=== PATIENT | male | born 1990 | race Caucasian/White ===

== ENCOUNTER 2017-04-20 02:19 | Emergency (ER) | payer OTHER ==
--- NOTE | 2017-04-20 03:40 | ER Document Report ---
HPI - HPI Patient complains to provider of: right arm pain Pain Level: 4 Context: Patient is a 26-year-old male that comes emergency department for chief complaint of right arm pain. He states that a large door accidentally closed on his arm just below his elbow, this happened over a week ago, he states that the pain persisted and will not go away and he is afraid he might have broken something after all. He denies any other injuries. He also reports a bump on the end of his wrist that he wants checked. Past medical history of ADHD, denies any other medical history. Denies any daily medications. - CONSTITUTIONAL Constitutional: DENIES: Fever, Chills - EENT EENT: DENIES: Sore Throat, Ear Pain, Eye problems - NEURO Neurology: DENIES: Headache, Weakness, Vision blurred, Dizzinesss / Vertigo - CARDIOVASCULAR Cardiovascular: DENIES: Chest pain - RESPIRATORY Respiratory: DENIES: Trouble Breathing, Coughing - GASTROINTESTINAL Gastrointestinal: DENIES: Abdominal Pain, Black / Bloody Stools - URINARY Urinary: DENIES: Dysuria, Urgency, Frequency - REPRODUCTIVE Reproductive: DENIES: :, Postmenopausal, Abnormal bleeding / discharge - MUSCULOSKELETAL Musculoskeletal: REPORTS: Extremity pain - r arm Past Medical History - General Information source: Patient - Social History Smoking Status: Current Every Day Smoker Chew tobacco use (# tins/day): No Smoking Education Provided: Yes - <3 min Frequency of alcohol use: None Drug Abuse: None Lives with: Alone Family History: Reviewed & Not Pertinent Patient has suicidal ideation: No Patient has homicidal ideation: No - Past Medical History Cardiac Medical History: Denies: Hx Coronary Artery Disease, Hx Heart Attack, Hx Hypertension Pulmonary Medical History: Reports: Hx Asthma - peds Denies: Hx Bronchitis, Hx COPD, Hx Pneumonia Neurological Medical History: Denies: Hx Cerebrovascular Accident, Hx Seizures Renal/ Medical History: Denies: Hx Peritoneal Dialysis Musculoskeltal Medical History: Denies Hx Arthritis Psychiatric Medical History: Reports: Hx Attention Deficit Hyperactivity Disorder Traumatic Medical History: Reports: Hx Fractures - right hand Past Surgical History: Reports: Hx Tonsillectomy - Immunizations Hx Diphtheria, Pertussis, Tetanus Vaccination: Yes Vertical Provider Document - CONSTITUTIONAL General Appearance: WD/WN, No Apparent Distress - INFECTION CONTROL TRAVEL OUTSIDE OF THE [place] IN LAST 30 DAYS: No - HEENT HEENT: Atraumatic, Normocephalic - RESPIRATORY Respiratory: Breath Sounds Normal, No Respiratory Distress O2 Sat by Pulse Oximetry: 99 - CARDIOVASCULAR Cardiovascular: Regular Rate, Regular Rhythm - GI/ABDOMEN Gastrointestinal: Abdomen Soft, Abdomen Non-Tender - MUSCULOSKELETAL/EXTREMETIES Musculoskeletal/Extremeties: Tender - There is tenderness generally over the lateral right arm near the elbow and in the proximal forearm. Mild pain with extension and flexion of the elbow. Shoulder exam unremarkable, wrist exam unremarkable except for a rounded area near the base of the hand. No erythema, unremarkable wrist exam otherwise, normal hand exam otherwise, normal capillary refill and sensation. Course - Re-evaluation Re-evalutation: Physical examination consistent with ganglion cyst. This was discussed with patient. It is not very big, patient states it is not very symptomatic. X-ray images negative for any acute findings. Patient with no concerning abnormality is on exam, no evidence of compartment syndrome or deficit. Treating with anti-inflammatories. Referred to orthopedics, discussed follow- up and return precautions, patient states understanding and agreement. - Vital Signs Vital signs: Temp Pulse Resp BP Pulse Ox 98.2 F 78 20 125/75 99 04/20/17 02:27 04/20/17 02:27 04/20/17 02:27 04/20/17 02:27 04/20/17 02:27 Discharge - Discharge Clinical Impression: Right arm pain, Right forearm pain Condition: Stable Disposition: HOME, SELF-CARE Additional Instructions: Your x-rays and examination did not show fracture or any concerning abnormalities. This appears to be a soft tissue injury. Take the prescribed anti-inflammatory. Follow-up with primary care. Your examination also indicates a ganglion cyst. If this becomes larger or symptomatic I recommend following up with orthopedic referral listed for additional management. Return for any concerning symptoms including severe swelling, redness, fever, or any other concerning symptoms. Ganglion Cyst A ganglion cyst is jelly-like material inside a tough coating. The cyst usually forms near an old tendon injury. Symptoms begin when the cyst gets big enough to "get in the way." If the cyst is not growing and not hurting, it doesn't need treatment. Symptoms of a cyst can be eased by injection of cortisone. The cysts can be reduced in size by sucking the jelly material out of it (the cyst will usually grow back). A splint helps ease symptoms. We often give oral antiinflammatory medicine. Large cysts, or those that continue to cause pain, should be removed surgically. Come back if the area becomes red, swollen, or increasingly tender. Prescriptions: Naproxen 500 mg PO BID PRN #20 tablet PRN Reason: Referrals: KOMAL WILDER, [ACTIVE STAFF] - Follow up as needed
--- NOTE | 2017-04-20 04:19 | RADIOLOGY REPORT (SQ) ---
EXAM DESCRIPTION: FOREARM RIGHT CLINICAL HISTORY: 26 years, Male, arm caught in door, pain COMPARISON: None. LIMITATIONS: None. FINDINGS: Bones, joints, and soft tissues appear intact. IMPRESSION: Intact right forearm. 2011 [employer]- All Rights Reserved
--- NOTE | 2017-04-20 04:20 | RADIOLOGY REPORT (SQ) ---
EXAM DESCRIPTION: ELBOW RIGHT OVER 2 VIEWS CLINICAL HISTORY: 26 years, Male, arm caught in door, pain COMPARISON: None. LIMITATIONS: None. FINDINGS: Minimal osteophyte at the ulnar olecranon. Bones and joints appear otherwise intact. No effusion. IMPRESSION: No acute findings. 2011 [employer]- All Rights Reserved
[2017-04-20 05:26] VITALS: BP 118/78
== END 2017-04-20 04:40 | disposition home or self-care (01) ==
LOC: ER 02:19
DX: M79.601 Pain in right arm (principal); M79.631 Pain in right forearm; F90.9 Attention-deficit hyperactivity disorder, unspecified type; F17.200 Nicotine dependence, unspecified, uncomplicated
CPT/HCPCS: 99283

== ENCOUNTER 2017-06-12 21:13 | Emergency (ER) | payer SELFPAY ==
[2017-06-12 22:23] LABS: APPEARANCE,URINE CLEAR; BILIRUBIN,URINE NEGATIVE (NEGATIVE); COLOR,URINE YELLOW; GLUCOSE, URINE NEGATIVE (NEGATIVE); KETONES,URINE NEGATIVE (NEGATIVE); LEUKOCYTE ESTERASE,URINE NEGATIVE (NEGATIVE); NITRITE,URINE NEGATIVE (NEGATIVE); PROTEIN,URINE NEGATIVE (NEGATIVE); URINE SPECIFIC GRAVITY 1.031; UROBILINOGEN,URINE NEGATIVE mg/dL (<2.0)
[2017-06-12 22:49] LABS: ABSOLUTE BASOPHILS # (AUTO) 0.2 10^3/uL (0.0-0.2); ABSOLUTE EOSINOPHILS # (AUTO) 0.3 10^3/uL (0.0-0.6); ABSOLUTE LYMPHOCYTES (AUTO) 4.3 10^3/uL (0.5-4.7); ABSOLUTE MONOCYTES (AUTO) 0.6 10^3/uL (0.1-1.4); ABSOLUTE NEUT (AUTO) 5.2 10^3/uL (1.7-8.2); BASOPHILS % (AUTO) 1.5 % (0-2); EOSINOPHILS % (AUTO) 2.7 % (0-6); HEMATOCRIT 47.2 % (37.9-51.0); HEMOGLOBIN 16.3 g/dL (13.5-17.0); LYMPHOCYTES % (AUTO) 40.9 % (13-45); MEAN CORPUSCULAR HEMOGLOBIN 30.1 pg (27.0-33.4); MEAN CORPUSCULAR HGB CONC 34.5 g/dL (32.0-36.0); MEAN CORPUSCULAR VOLUME 87 fl (80-97); MONOCYTES % (AUTO) 5.8 % (3-13); PLATELET COUNT 244 10^3/uL (150-450); RED CELL DISTRIBUTION WIDTH 12.4 % (11.5-14.0); SEGMENTED NEUTROPHILS % (AUTO) 49.1 % (42-78); TOTAL CELLS COUNTED % (AUTO) 100 %; WHITE BLOOD COUNT 10.6 10^3/uL (4.0-10.5)
[2017-06-12 23:09] LABS: ALANINE AMINOTRANSFERASE 42 U/L (21-72); ALBUMIN 4.8 g/dL (3.5-5.0); ALKALINE PHOSPHATASE 73 U/L (38-126); ANION GAP 14 (5-19); ASPARTATE AMINO TRANSFERASE 30 U/L (17-59); BILIRUBIN,DIRECT 0.1 mg/dL (0.0-0.4); BILIRUBIN,TOTAL 0.2 mg/dL (0.2-1.3); BLOOD UREA NITROGEN 14 mg/dL (7-20); CALCIUM 9.9 mg/dL (8.4-10.2); CARBON DIOXIDE 24 mmol/L (22-30); CHLORIDE 104 mmol/L (98-107); GLUCOSE 100 mg/dL (75-110); LIPASE 85.6 U/L (23-300); POTASSIUM 4.4 mmol/L (3.6-5.0); SODIUM 141.6 mmol/L (137-145); TOTAL PROTEIN 7.2 g/dL (6.3-8.2)
--- NOTE | 2017-06-12 23:38 | ER Document Report ---
ED General - General Chief Complaint: Abdominal Pain Stated Complaint: ABDOMINAL PAIN Time Seen by Provider: 06/12/17 22:40 Mode of Arrival: Ambulatory Information source: Patient Notes: 26 yr old male presents with complaints of ibs , bilateral lower abd pain. Pt denies any fevers or chills, denies any vomiting but admits to nausea TRAVEL OUTSIDE OF THE [place] IN LAST 30 DAYS: No - HPI Onset: Yesterday Onset/Duration: Persistent Quality of pain: Achy Severity: Mild Pain Level: 1 Associated symptoms: Other Exacerbated by: Denies Relieved by: Denies Similar symptoms previously: Yes Recently seen / treated by doctor: No - Related Data Allergies/Adverse Reactions: No Known Allergies Allergy (Verified 02/18/14 19:36) Past Medical History - Social History Smoking Status: Never Smoker Cigarette use (# per day): No Chew tobacco use (# tins/day): No Smoking Education Provided: No Family History: Reviewed & Not Pertinent - Past Medical History Cardiac Medical History: Denies: Hx Coronary Artery Disease, Hx Heart Attack, Hx Hypertension Pulmonary Medical History: Reports: Hx Asthma - peds Denies: Hx Bronchitis, Hx COPD, Hx Pneumonia Neurological Medical History: Denies: Hx Cerebrovascular Accident, Hx Seizures Renal/ Medical History: Denies: Hx Peritoneal Dialysis Musculoskeltal Medical History: Denies Hx Arthritis Psychiatric Medical History: Reports: Hx Attention Deficit Hyperactivity Disorder Traumatic Medical History: Reports: Hx Fractures - right hand Past Surgical History: Reports: Hx Tonsillectomy - Immunizations Hx Diphtheria, Pertussis, Tetanus Vaccination: Yes Review of Systems - Review of Systems Notes: REVIEW OF SYSTEMS: CONSTITUTIONAL : Denies fever, chills, or sweats. Denies recent illness. EENT: Denies eye, ear, throat, or mouth pain or symptoms. Denies nasal or sinus congestion or discharge. Denies throat, tongue, or mouth swelling or difficulty swallowing. CARDIOVASCULAR: Denies chest pain. Denies palpitations or racing or irregular heart beat. Denies ankle edema. RESPIRATORY: Denies cough, cold, or chest congestion. Denies shortness of breath, difficulty breathing, or wheezing. GASTROINTESTINAL: Admits to bilateral lower abdominal pain nausea GENITOURINARY: Denies difficulty urinating, painful urination, burning, frequency, blood in urine, or discharge. MUSCULOSKELETAL: Denies back or neck pain or stiffness. Denies joint pain or swelling. SKIN: Denies rash, lesions or sores. HEMATOLOGIC : Denies easy bruising or bleeding. LYMPHATIC: Denies swollen, enlarged glands. NEUROLOGICAL: Denies confusion or altered mental status. Denies passing out or loss of consciousness. Denies dizziness or lightheadedness. Denies headache. Denies weakness or paralysis or loss of use of either side. Denies problems with gait or speech. Denies sensory loss, numbness, or tingling. Denies seizures. PSYCHIATRIC: Denies anxiety or stress. Denies depression, suicidal ideation, or homicidal ideation. ALL OTHER SYSTEMS REVIEWED AND NEGATIVE. Dictation was performed using [employer] voice recognition software PHYSICAL EXAMINATION: GENERAL: Well-appearing, well-nourished and in no acute distress. HEAD: Atraumatic, normocephalic. EYES: Pupils equal round and reactive to light, extraocular movements intact, sclera anicteric, conjunctiva are normal. ENT: Nares patent, oropharynx clear without exudates. Moist mucous membranes. NECK: Normal range of motion, supple without lymphadenopathy LUNGS: Breath sounds clear to auscultation bilaterally and equal. No wheezes rales or rhonchi. HEART: Regular rate and rhythm without murmurs ABDOMEN: Soft, minimally tender bilateral lower quadrant no rebound no guarding no masses Musculoskeletal: Normal range of motion, no pitting or edema. No cyanosis. NEUROLOGICAL: Cranial nerves grossly intact. Normal speech, normal gait. Normal sensory, motor exams PSYCH: Normal mood, normal affect. SKIN: Warm, Dry, normal turgor, no rashes or lesions noted. Physical Exam - Vital signs Vitals: Temp Pulse Resp BP Pulse Ox 98.5 F 89 14 124/67 96 06/12/17 21:52 06/12/17 21:52 06/12/17 21:52 06/12/17 21:52 06/12/17 21:52 Course - Re-evaluation Re-evalutation: 06/12/17 23:37 Patient has mild white count elevation very low suspicion for appendicitis is probably more IBS related 06/13/17 01:47 CT noted no significant abnormality, patient in no distress, he states he only came in because his forced him to, I have very low suspicion for any life- threatening issues, patient is stable for discharge with very strict return precautions. 06/13/17 02:19 After performing a Medical Screening Examination, I estimate there is LOW risk for ACUTE APPENDICITIS, BOWEL OBSTRUCTION, ACUTE CHOLECYSTITIS, PERFORATED DIVERTICULITIS, INCARCERATED HERNIA, PANCREATITIS, TESTICULAR TORSION or PERFORATED ULCER, thus I consider the discharge disposition reasonable. Also, there is no evidence or peritonitis, sepsis, or toxicity. I have reevaluated this patient multiple times and no significant life threatening changes are noted. The patient and I have discussed the diagnosis and risks, and we agree with discharging home with close follow-up with the understanding that symptoms and presentations can change. We also discussed returning to the Emergency Department immediately if new or worsening symptoms occur. We have discussed the symptoms which are most concerning (e.g., bloody stool, fever, changing or worsening pain, intractable vomiting - standard verbal up date) that necessitate immediate return. - Vital Signs Vital signs: Temp Pulse Resp BP Pulse Ox 97.8 F 67 12 97/61 L 98 06/13/17 01:41 06/13/17 01:41 06/13/17 01:41 06/13/17 01:41 06/13/17 01:41 - Laboratory Result Diagrams: 06/12/17 22:42 06/12/17 22:42 Laboratory results interpreted by me: 06/12/17 22:42 WBC 10.6 H - Diagnostic Test Radiology reviewed: Image reviewed, Reports reviewed Discharge - Discharge Clinical Impression: Abdominal pain Qualifiers: Abdominal location: generalized Qualified Code(s): R10.84 - Generalized abdominal pain IBS (irritable bowel syndrome) Qualifiers: Irritable bowel syndrome type: unspecified Qualified Code(s): K58.9 - Irritable bowel syndrome without diarrhea Condition: Stable Disposition: HOME, SELF-CARE Instructions: Abdominal Pain ([facility]), Antispasmodics ([facility]) Prescriptions: Dicyclomine HCl [Bentyl 20 mg Tablet] 20 mg PO QID #40 tablet Referrals: MANOHAR MARVIN MD [ACTIVE STAFF] - Follow up in 3-5 days
--- NOTE | 2017-06-13 01:24 | RADIOLOGY REPORT (SQ) ---
EXAM DESCRIPTION: CT ABD/PELVIS WITH IV ONLY CLINICAL HISTORY: 26 years Male, hx ibs, bilateral lower abd pain COMPARISON: None. TECHNIQUE: 100 mL Isovue-370 IV contrast. Coronal and sagittal reformat. This exam was performed according to our departmental dose-optimization program, which includes automated exposure control, adjustment of the mA and/or kV according to patient size and/or use of iterative reconstruction technique. FINDINGS: No acute findings. No free fluid. No bowel or renal obstruction. Normal appendix. Lower thoracic disc desiccation. Mild lumbosacral spondylosis. Inferior thorax, liver, gallbladder, pancreas, spleen, adrenals, renal system, gastrointestinal tract, pelvic organs, lymphatics, vasculature, and musculoskeleton appear otherwise unremarkable. IMPRESSION: No acute findings.
[2017-06-13 01:44] VITALS: BP 97/61
== END 2017-06-13 02:27 | disposition home or self-care (01) ==
LOC: ER 21:13
DX: K58.9 Irritable bowel syndrome, unspecified (principal); R10.84 Generalized abdominal pain; R11.0 Nausea; D72.829 Elevated white blood cell count, unspecified
CPT/HCPCS: 36415; 74177; 80053; 81001; 83690; 85025; 99284

== ENCOUNTER 2017-10-01 10:43 | Emergency (ER) | payer SELFPAY ==
[2017-10-01] MEDS ORDERED: RINGERS SOLUTION,LACTATED 1,000 ML IV PRN (11:59)
--- NOTE | 2017-10-01 12:01 | ER Document Report ---
ED Medical Screen (RME) - General Chief Complaint: Dizziness Stated Complaint: DIZZINESS Time Seen by Provider: 10/01/17 11:53 Mode of Arrival: Ambulatory Information source: Patient Notes: This is a 27-year-old man who presents to the emergency with dizziness, nausea, weakness, stumbling and confusion. 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 His reports that he was having the above symptoms yesterday and the patient states he feels completely drained at this time. There is no slurred speech or focal weakness. The onset of symptoms was last night. Medications: None Allergies: None Physician: None TRAVEL OUTSIDE OF THE [place] IN LAST 30 DAYS: No - Related Data Allergies/Adverse Reactions: No Known Allergies Allergy (Verified 10/01/17 10:47) Past Medical History - Social History Chew tobacco use (# tins/day): No Frequency of alcohol use: Occasional Drug Abuse: None - Past Medical History Cardiac Medical History: Denies: Hx Coronary Artery Disease, Hx Heart Attack, Hx Hypertension Pulmonary Medical History: Reports: Hx Asthma - peds Denies: Hx Bronchitis, Hx COPD, Hx Pneumonia Neurological Medical History: Denies: Hx Cerebrovascular Accident, Hx Seizures Renal/ Medical History: Denies: Hx Peritoneal Dialysis Musculoskeltal Medical History: Denies Hx Arthritis Psychiatric Medical History: Reports: Hx Attention Deficit Hyperactivity Disorder Traumatic Medical History: Reports: Hx Fractures - right hand Past Surgical History: Reports: Hx Tonsillectomy - and adenoids - Immunizations Hx Diphtheria, Pertussis, Tetanus Vaccination: Yes Physical Exam - Vital signs Vitals: Temp Pulse Resp BP Pulse Ox 98.8 F 66 18 126/57 H 98 10/01/17 10:57 10/01/17 10:57 10/01/17 10:57 10/01/17 10:57 10/01/17 10:57 Course - Vital Signs Vital signs: Temp Pulse Resp BP Pulse Ox 98.8 F 66 18 126/57 H 98 10/01/17 10:57 10/01/17 10:57 10/01/17 11:43 10/01/17 10:57 10/01/17 10:57
[2017-10-01 12:37] LABS: ABSOLUTE BASOPHILS # (AUTO) 0.1 10^3/uL (0.0-0.2); ABSOLUTE EOSINOPHILS # (AUTO) 0.3 10^3/uL (0.0-0.6); ABSOLUTE LYMPHOCYTES (AUTO) 3.3 10^3/uL (0.5-4.7); ABSOLUTE MONOCYTES (AUTO) 0.5 10^3/uL (0.1-1.4); ABSOLUTE NEUT (AUTO) 4.4 10^3/uL (1.7-8.2); BASOPHILS % (AUTO) 1.6 % (0-2); EOSINOPHILS % (AUTO) 3.6 % (0-6); HEMATOCRIT 44.9 % (37.9-51.0); HEMOGLOBIN 15.5 g/dL (13.5-17.0); LYMPHOCYTES % (AUTO) 38.2 % (13-45); MEAN CORPUSCULAR HEMOGLOBIN 30.7 pg (27.0-33.4); MEAN CORPUSCULAR HGB CONC 34.5 g/dL (32.0-36.0); MEAN CORPUSCULAR VOLUME 89 fl (80-97); PLATELET COUNT 243 10^3/uL (150-450); RED BLOOD COUNT 5.04 10^6/uL (4.35-5.55); RED CELL DISTRIBUTION WIDTH 12.6 % (11.5-14.0); SEGMENTED NEUTROPHILS % (AUTO) 50.6 % (42-78); TOTAL CELLS COUNTED % (AUTO) 100 %; WHITE BLOOD COUNT 8.7 10^3/uL (4.0-10.5)
[2017-10-01 12:53] LABS: APPEARANCE,URINE SLIGHTLY-CLOUDY; BILIRUBIN,URINE NEGATIVE (NEGATIVE); COLOR,URINE YELLOW; GLUCOSE, URINE NEGATIVE (NEGATIVE); KETONES,URINE NEGATIVE (NEGATIVE); LEUKOCYTE ESTERASE,URINE NEGATIVE (NEGATIVE); NITRITE,URINE NEGATIVE (NEGATIVE); PROTEIN,URINE NEGATIVE (NEGATIVE); URINE SPECIFIC GRAVITY 1.027; UROBILINOGEN,URINE NEGATIVE mg/dL (<2.0)
[2017-10-01 12:57] LABS: ALANINE AMINOTRANSFERASE 43 U/L (21-72); ALBUMIN 4.3 g/dL (3.5-5.0); ALKALINE PHOSPHATASE 65 U/L (38-126); ANION GAP 11 (5-19); ASPARTATE AMINO TRANSFERASE 32 U/L (17-59); BILIRUBIN,DIRECT 0.2 mg/dL (0.0-0.4); BILIRUBIN,TOTAL 0.3 mg/dL (0.2-1.3); BLOOD UREA NITROGEN 14 mg/dL (7-20); CALCIUM 9.8 mg/dL (8.4-10.2); CARBON DIOXIDE 27 mmol/L (22-30); CHLORIDE 106 mmol/L (98-107); CREATINE KINASE 190 U/L (55-170); GLUCOSE 86 mg/dL (75-110); POTASSIUM 4.6 mmol/L (3.6-5.0); SODIUM 143.8 mmol/L (137-145); TOTAL PROTEIN 7.1 g/dL (6.3-8.2)
[2017-10-01 13:11] LABS: URINE AMPHETAMINES SCREEN NEGATIVE; URINE BARBITURATES SCREEN NEGATIVE; URINE BENZODIAZEPINES SCREEN NEGATIVE; URINE COCAINE SCREEN NEGATIVE; URINE MARIJUANA (THC) SCREEN NEGATIVE; URINE METHADONE SCREEN NEGATIVE; URINE PHENCYCLIDINE SCREEN NEGATIVE
--- NOTE | 2017-10-01 14:24 | ER Document Report ---
ED General - General Chief Complaint: Dizziness Stated Complaint: DIZZINESS Time Seen by Provider: 10/01/17 11:53 Mode of Arrival: Ambulatory Information source: Patient Notes: 27-year-old male presents with complaints of dizziness lightheadedness nausea vomiting that worsens when he stands up. 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 TRAVEL OUTSIDE OF THE [place] IN LAST 30 DAYS: No - HPI Onset: Last week Onset/Duration: Persistent Quality of pain: No pain Severity: Moderate Pain Level: Denies Associated symptoms: Weakness Exacerbated by: Standing Relieved by: Denies Similar symptoms previously: Yes Recently seen / treated by doctor: No - Related Data Allergies/Adverse Reactions: No Known Allergies Allergy (Verified 10/01/17 10:47) Past Medical History - General Information source: Patient - Social History Smoking Status: Current Every Day Smoker Cigarette use (# per day): Yes Chew tobacco use (# tins/day): No Smoking Education Provided: No Frequency of alcohol use: Occasional Drug Abuse: None Family History: Reviewed & Not Pertinent Patient has suicidal ideation: No Patient has homicidal ideation: No - Past Medical History Cardiac Medical History: Denies: Hx Coronary Artery Disease, Hx Heart Attack, Hx Hypertension Pulmonary Medical History: Reports: Hx Asthma - peds Denies: Hx Bronchitis, Hx COPD, Hx Pneumonia Neurological Medical History: Denies: Hx Cerebrovascular Accident, Hx Seizures Renal/ Medical History: Denies: Hx Peritoneal Dialysis Musculoskeltal Medical History: Denies Hx Arthritis Psychiatric Medical History: Reports: Hx Attention Deficit Hyperactivity Disorder Traumatic Medical History: Reports: Hx Fractures - right hand Past Surgical History: Reports: Hx Tonsillectomy - and adenoids - Immunizations Hx Diphtheria, Pertussis, Tetanus Vaccination: Yes Review of Systems - Review of Systems Notes: REVIEW OF SYSTEMS: CONSTITUTIONAL : Denies fever, chills, or sweats. Denies recent illness. EENT: Denies eye, ear, throat, or mouth pain or symptoms. Denies nasal or sinus congestion or discharge. Denies throat, tongue, or mouth swelling or difficulty swallowing. CARDIOVASCULAR: Denies chest pain. Denies palpitations or racing or irregular heart beat. Denies ankle edema. RESPIRATORY: Denies cough, cold, or chest congestion. Denies shortness of breath, difficulty breathing, or wheezing. GASTROINTESTINAL: Denies abdominal pain or distention. Denies nausea, vomiting , or diarrhea. Denies blood in vomitus, stools, or per rectum. Denies black, tarry stools. Denies constipation. GENITOURINARY: Denies difficulty urinating, painful urination, burning, frequency, blood in urine, or discharge. MUSCULOSKELETAL: Denies back or neck pain or stiffness. Denies joint pain or swelling. SKIN: Denies rash, lesions or sores. HEMATOLOGIC : Denies easy bruising or bleeding. LYMPHATIC: Denies swollen, enlarged glands. NEUROLOGICAL: Admits to dizziness lightheadedness PSYCHIATRIC: Denies anxiety or stress. Denies depression, suicidal ideation, or homicidal ideation. ALL OTHER SYSTEMS REVIEWED AND NEGATIVE. Dictation was performed using [id number] voice recognition software PHYSICAL EXAMINATION: GENERAL: Well-appearing, well-nourished and in no acute distress. Orthostatic hypotension noted HEAD: Atraumatic, normocephalic. EYES: Pupils equal round and reactive to light, extraocular movements intact, sclera anicteric, conjunctiva are normal. ENT: Nares patent, oropharynx clear without exudates. Moist mucous membranes. NECK: Normal range of motion, supple without lymphadenopathy LUNGS: Breath sounds clear to auscultation bilaterally and equal. No wheezes rales or rhonchi. HEART: Regular rate and rhythm without murmurs ABDOMEN: Soft, nontender, nondistended abdomen. No guarding, no rebound. No masses appreciated. Musculoskeletal: Normal range of motion, no pitting or edema. No cyanosis. NEUROLOGICAL: Cranial nerves grossly intact. Normal speech, normal gait. Normal sensory, motor exams PSYCH: Normal mood, normal affect. SKIN: Warm, Dry, normal turgor, no rashes or lesions noted. 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 Patient overall looks well is in no distress was given 1/2 L of lactated Ringer and notes that symptoms resolved completely. Patient denies any other concerns at this time wishes to be discharged home before the second liter finished After performing a Medical Screening Examination, I estimate there is LOW risk for INTRACRANIAL HEMORRHAGE, ISCHEMIC CVA, MALIGNANT DYSRHYTHMIA, ACUTE CORONARY SYNDROME, MENINGITIS, PULMONARY EMBOLISM, or SEPSIS thus I consider the discharge disposition reasonable. I have reevaluated this patient multiple times and no significant life threatening changes are noted. The patient and I have discussed the diagnosis and risks, and we agree with discharging home with close follow-up with the understanding that symptoms and presentations can change. We also discussed returning to the Emergency Department immediately if new or worsening symptoms occur. We have discussed the symptoms which are most concerning (e.g., changing or worsening pain, weakness, vomiting, fever) that necessitate immediate return. - Vital Signs Vital signs: Temp Pulse Resp BP Pulse Ox 98.8 F 66 18 126/57 H 98 10/01/17 10:57 10/01/17 10:57 10/01/17 11:43 10/01/17 10:57 10/01/17 10:57 - Laboratory Result Diagrams: 10/01/17 12:10 10/01/17 12:10 Laboratory results interpreted by me: 10/01/17 12:10 Creatine Kinase 190 H Discharge - Discharge Clinical Impression: Dehydration, Orthostatic hypotension Condition: Stable Disposition: HOME, SELF-CARE Instructions: Orthostatic Hypotension ([facility]) Additional Instructions: Follow up with your physician tomorrow for further care or return to the ED IMMEDIATELY if symptoms worsen or new concerns occur. If you cannot afford to follow up with your primary care physician a list of low cost clinics have been provided at the end of your discharge papers as well. Forms: Return to Work
[2017-10-01 14:49] VITALS: BP 112/50
== END 2017-10-01 14:49 | disposition home or self-care (01) ==
LOC: ER 10:43
DX: E86.0 Dehydration (principal); I95.1 Orthostatic hypotension; R42 Dizziness and giddiness; R11.2 Nausea with vomiting, unspecified; F17.210 Nicotine dependence, cigarettes, uncomplicated
CPT/HCPCS: 36415; 80053; 80307; 81001; 82550; 85025; 99284

== ENCOUNTER 2017-12-08 13:29 | Emergency (ER) | payer SELFPAY ==
[2017-12-08] MEDS ORDERED: NORMAL SALINE 1000 ML 1,000 ML IV ONE (15:02)
[2017-12-08] MEDS ORDERED: MECLIZINE HCL 25 MG TABLET PO ONE (15:02)
[2017-12-08] MEDS ORDERED: KETOROLAC TROMETHAMINE INJ/PF 30 MG/1 ML SDV IV ONE (15:02)
--- NOTE | 2017-12-08 15:04 | ER Document Report ---
HPI - HPI Patient complains to provider of: Dizziness, congestion, cough Onset: Other - 2 days Onset/Duration: Persistent Quality of pain: Achy Pain Level: 3 Context: Patient presents complaining of body aches, cough and congestion. Patient reports dizziness in which she feels off balance. Patient does report some diarrhea. Patient states he had a temperature of 101 today. Associated Symptoms: Body/muscle aches, Nonproductive cough, Fever, Rhinnorhea, Sinus pain/drainage. denies: Earache, Headache, Vomiting Exacerbated by: Denies Relieved by: Denies Similar symptoms previously: No Recently seen / treated by doctor: No - ROS ROS below otherwise negative: Yes Systems Reviewed and Negative: Yes All other systems reviewed and negative - CONSTITUTIONAL Constitutional: REPORTS: Fever, Chills - EENT EENT: REPORTS: Ear Pain, Nasal Drainage-Clear. DENIES: Sore Throat - NEURO Neurology: REPORTS: Headache, Dizzinesss / Vertigo. 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 Lives with: Family Family History: Reviewed & Not Pertinent Patient has suicidal ideation: No Patient has homicidal ideation: No - Past Medical History Cardiac Medical History: Denies: Hx Coronary Artery Disease, Hx Heart Attack, Hx Hypertension Pulmonary Medical History: Reports: Hx Asthma - peds Denies: Hx Bronchitis, Hx COPD, Hx Pneumonia Neurological Medical History: Denies: Hx Cerebrovascular Accident, Hx Seizures Renal/ Medical History: Denies: Hx Peritoneal Dialysis Musculoskeletal Medical History: Denies Hx Arthritis Psychiatric Medical History: Reports: Hx Attention Deficit Hyperactivity Disorder Traumatic Medical History: Reports: Hx Fractures - right hand Past Surgical History: Reports: Hx Tonsillectomy - and adenoids - Immunizations Hx Diphtheria, Pertussis, Tetanus Vaccination: Yes Vertical Provider Document - CONSTITUTIONAL Agree With Documented VS: Yes Exam Limitations: No Limitations General Appearance: WD/WN, No Apparent Distress - INFECTION CONTROL TRAVEL OUTSIDE OF THE [place] IN LAST 30 DAYS: No - HEENT HEENT: Atraumatic, Normocephalic, Pharyngeal Erythema. negative: Pharyngeal Exudate, Pharyngeal Tenderness, Tympanic Membrane Red, Tympanic Membrane Bulging Notes: clear rhinorrhea - NECK Neck: Normal Inspection, Supple. negative: Lymphadenopathy-Left, Lymphadenopathy-Right - RESPIRATORY Respiratory: No Respiratory Distress, Chest Non-Tender, Rhonchi - CARDIOVASCULAR Cardiovascular: Regular Rate, Regular Rhythm, No Murmur - BACK Back: Normal Inspection - MUSCULOSKELETAL/EXTREMETIES Musculoskeletal/Extremeties: MAMACIEJ, FROM - NEURO Level of Consciousness: Awake, Alert, Appropriate Motor/Sensory: No Motor Deficit - DERM Integumentary: Warm, Dry, No Rash Course - Re-evaluation Re-evalutation: 12/08/17 17:16 pt denies any dizziness, pt feeling better. No concern for pneumonia. - Vital Signs Vital signs: Temp Pulse Resp BP Pulse Ox 98.1 F 76 18 112/64 98 12/08/17 13:42 12/08/17 13:42 12/08/17 13:42 12/08/17 13:42 12/08/17 13:42 - Laboratory Result Diagrams: 12/08/17 15:48 12/08/17 15:48 Laboratory results interpreted by me: 12/08/17 17:16 Labs- Entire Visit 12/08/17 12/08/17 15:48 15:48 WBC 7.7 RBC 5.45 Hgb 16.3 Hct 47.8 MCV 88 MCH 30.0 MCHC 34.2 RDW 12.3 Plt Count 213 Seg Neutrophils % 51.0 Lymphocytes % 37.2 Monocytes % 7.7 Eosinophils % 3.1 Basophils % 1.0 Absolute Neutrophils 3.9 Absolute Lymphocytes 2.9 Absolute Monocytes 0.6 Absolute Eosinophils 0.2 Absolute Basophils 0.1 Sodium 142.0 Potassium 4.5 Chloride 102 Carbon Dioxide 28 Anion Gap 12 BUN 15 Creatinine 0.76 Est GFR ( Amer) > 60 Est GFR (Non-Af Amer) > 60 Glucose 83 Calcium 9.4 - Diagnostic Test Radiology reviewed: Reports reviewed Discharge - Discharge Clinical Impression: Vertigo Upper respiratory infection Qualifiers: URI type: unspecified URI Qualified Code(s): J06.9 - Acute upper respiratory infection, unspecified Condition: Stable Disposition: HOME, SELF-CARE Instructions: Acetaminophen, Upper Respiratory Illness ([facility]), Vertigo ([facility]), Viral Syndrome ([facility]) Additional Instructions: return as needed for any new or worsening symptoms follow up with a primary care provider for a recheck Prescriptions: Guaifenesin/Pseudoephedrne HCl [Mucinex D ER 600-60 mg Tablet] 1 each PO Q12 PRN #12 tab.er.12h PRN Reason: Meclizine HCl [Antivert 25 mg Tablet] 25 mg PO ASDIR PRN #15 tablet PRN Reason: Naproxen [Naprosyn 250 Nmg Tablet] 1 tab PO BID #14 tablet Forms: Smoking Cessation Education, Return to Work
--- NOTE | 2017-12-08 15:49 | RADIOLOGY REPORT (SQ) ---
EXAM DESCRIPTION: CHEST 2 VIEWS COMPLETED DATE/TIME: 12/08/2017 3:36 pm REASON FOR STUDY: cough COMPARISON: None. EXAM PARAMETERS: NUMBER OF VIEWS: two views TECHNIQUE: Digital Frontal and Lateral radiographic views of the chest acquired. RADIATION DOSE: NA LIMITATIONS: none FINDINGS: LUNGS AND PLEURA: No opacities, masses or pneumothorax. No pleural effusion. MEDIASTINUM AND HILAR STRUCTURES: No masses or contour abnormalities. HEART AND VASCULAR STRUCTURES: Heart normal size. No evidence for failure. BONES: No acute findings. HARDWARE: None in the chest. OTHER: No other significant finding. IMPRESSION: NO ACUTE RADIOGRAPHIC FINDING IN THE CHEST. TECHNICAL DOCUMENTATION: JOB ID: [id number] [employer]- All Rights Reserved Reading location - IP/workstation name: [email or web address]
[2017-12-08 16:21] LABS: ABSOLUTE BASOPHILS # (AUTO) 0.1 10^3/uL (0.0-0.2); ABSOLUTE EOSINOPHILS # (AUTO) 0.2 10^3/uL (0.0-0.6); ABSOLUTE LYMPHOCYTES (AUTO) 2.9 10^3/uL (0.5-4.7); ABSOLUTE MONOCYTES (AUTO) 0.6 10^3/uL (0.1-1.4); ABSOLUTE NEUT (AUTO) 3.9 10^3/uL (1.7-8.2); EOSINOPHILS % (AUTO) 3.1 % (0-6); HEMATOCRIT 47.8 % (37.9-51.0); HEMOGLOBIN 16.3 g/dL (13.5-17.0); LYMPHOCYTES % (AUTO) 37.2 % (13-45); MEAN CORPUSCULAR HGB CONC 34.2 g/dL (32.0-36.0); MEAN CORPUSCULAR VOLUME 88 fl (80-97); MONOCYTES % (AUTO) 7.7 % (3-13); PLATELET COUNT 213 10^3/uL (150-450); RED BLOOD COUNT 5.45 10^6/uL (4.35-5.55); RED CELL DISTRIBUTION WIDTH 12.3 % (11.5-14.0); TOTAL CELLS COUNTED % (AUTO) 100 %; WHITE BLOOD COUNT 7.7 10^3/uL (4.0-10.5)
[2017-12-08 16:44] LABS: ANION GAP 12 (5-19); BLOOD UREA NITROGEN 15 mg/dL (7-20); CALCIUM 9.4 mg/dL (8.4-10.2); CARBON DIOXIDE 28 mmol/L (22-30); CHLORIDE 102 mmol/L (98-107); GLUCOSE 83 mg/dL (75-110); POTASSIUM 4.5 mmol/L (3.6-5.0)
[2017-12-08 17:20] VITALS: BP 121/63
--- NOTE | 2017-12-08 20:40 | EKG REPORT ---
SEVERITY:- NORMAL ECG - SINUS RHYTHM : Confirmed by: Israel Jackson MD 08-Dec-2017 20:39:57
== END 2017-12-08 17:26 | disposition home or self-care (01) ==
LOC: ER 13:29
DX: J06.9 Acute upper respiratory infection, unspecified (principal); R42 Dizziness and giddiness; R05 Cough; R19.7 Diarrhea, unspecified; M79.1 Myalgia; J34.89 Other specified disorders of nose and nasal sinuses; R50.9 Fever, unspecified; R51 Headache; H92.09 Otalgia, unspecified ear; F17.200 Nicotine dependence, unspecified, uncomplicated
CPT/HCPCS: 93005; 99284; 96361; 96374; 36415; 85025; 80048; 71046; 93010; J1885; J7030

== ENCOUNTER 2018-05-04 08:39 | Emergency (ER) | payer SELFPAY ==
--- NOTE | 2018-05-04 09:51 | ER Document Report ---
ED Medical Screen (RME) - General Chief Complaint: Chest Wall Pain Stated Complaint: CHEST/BACK PAIN, SHORTNESS OF BREATH Time Seen by Provider: 05/04/18 09:44 Notes: RAPID MEDICAL EVALUATION DISCLOSURE I have seen this patient as part of a Rapid Medical Evaluation and, if applicable, placed any initially appropriate orders. The patient will be seen and fully evaluated, including a full history and physical exam, by a provider (in Main ED or Fast Track) when a room becomes available. 27-year-old male here with complaints of midsternal nonradiating chest pain as well as left upper back pain ongoing for the past 2 days. Pain is worse with moving his left arm and torso twisting. Pain is also worse with coughing and breathing. He has no pain whatsoever if he sits completely still without moving his left arm or torso. He has not taken anything for the symptoms. He denies any extremity swelling. 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 EXAM CTAB RRR Mild left anterior pectoralis and chest wall TTP Moderate left upper back musculature TTP, specifically at and around shoulder blade TRAVEL OUTSIDE OF THE [place] IN LAST 30 DAYS: No - Related Data Allergies/Adverse Reactions: No Known Allergies Allergy (Verified 05/04/18 08:49) Past Medical History - Social History Chew tobacco use (# tins/day): No Frequency of alcohol use: None Drug Abuse: None - Past Medical History Cardiac Medical History: Denies: Hx Coronary Artery Disease, Hx Heart Attack, Hx Hypertension Pulmonary Medical History: Reports: Hx Asthma - peds Denies: Hx Bronchitis, Hx COPD, Hx Pneumonia Neurological Medical History: Denies: Hx Cerebrovascular Accident, Hx Seizures Renal/ Medical History: Denies: Hx Peritoneal Dialysis Musculoskeltal Medical History: Denies Hx Arthritis Psychiatric Medical History: Reports: Hx Attention Deficit Hyperactivity Disorder Traumatic Medical History: Reports: Hx Fractures - right hand Past Surgical History: Reports: Hx Tonsillectomy - and adenoids - Immunizations Hx Diphtheria, Pertussis, Tetanus Vaccination: Yes Physical Exam - Vital signs Vitals: Temp Pulse Resp BP Pulse Ox 98.8 F 78 16 131/62 H 98 05/04/18 08:56 05/04/18 08:56 05/04/18 08:56 05/04/18 08:56 05/04/18 08:56 Course - Vital Signs Vital signs: Temp Pulse Resp BP Pulse Ox 98.8 F 78 16 131/62 H 98 05/04/18 08:56 05/04/18 08:56 05/04/18 08:56 05/04/18 08:56 05/04/18 08:56
--- NOTE | 2018-05-04 10:22 | RADIOLOGY REPORT (SQ) ---
EXAM DESCRIPTION: CHEST 2 VIEWS COMPLETED DATE/TIME: 05/04/2018 10:09 am REASON FOR STUDY: CP; eval pneumothorax COMPARISON: 12/08/2017, 02/18/2014 EXAM PARAMETERS: NUMBER OF VIEWS: two views TECHNIQUE: Digital Frontal and Lateral radiographic views of the chest acquired. RADIATION DOSE: NA LIMITATIONS: none FINDINGS: LUNGS AND PLEURA: No opacities, masses or pneumothorax. No pleural effusion. MEDIASTINUM AND HILAR STRUCTURES: No masses or contour abnormalities. HEART AND VASCULAR STRUCTURES: Heart normal size. No evidence for failure. BONES: No acute findings. HARDWARE: None in the chest. OTHER: No other significant finding. IMPRESSION: NO ACUTE RADIOGRAPHIC FINDING IN THE CHEST. TECHNICAL DOCUMENTATION: JOB ID: [id number] [employer]- All Rights Reserved Reading location - IP/workstation name: [email or web address]
--- NOTE | 2018-05-04 10:34 | ER Document Report ---
ED General - General Chief Complaint: Chest Wall Pain Stated Complaint: CHEST/BACK PAIN, SHORTNESS OF BREATH Time Seen by Provider: 05/04/18 09:44 Notes: 27-year-old male here with complaints of midsternal nonradiating chest pain as well as left upper back pain ongoing for the past 2 days. Pain is worse with moving his left arm and torso twisting. Pain is also worse with coughing and breathing. He has no pain whatsoever if he sits completely still without moving his left arm or torso. He has not taken anything for the symptoms. He denies any extremity swelling. 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 TRAVEL OUTSIDE OF THE [place] IN LAST 30 DAYS: No - Related Data Allergies/Adverse Reactions: No Known Allergies Allergy (Verified 05/04/18 08:49) Past Medical History - Social History Smoking Status: Current Every Day Smoker Chew tobacco use (# tins/day): No Frequency of alcohol use: None Drug Abuse: None Family History: Reviewed & Not Pertinent Patient has suicidal ideation: No Patient has homicidal ideation: No - Past Medical History Cardiac Medical History: Denies: Hx Coronary Artery Disease, Hx Heart Attack, Hx Hypertension Pulmonary Medical History: Reports: Hx Asthma - peds Denies: Hx Bronchitis, Hx COPD, Hx Pneumonia Neurological Medical History: Denies: Hx Cerebrovascular Accident, Hx Seizures Renal/ Medical History: Denies: Hx Peritoneal Dialysis Musculoskeletal Medical History: Denies Hx Arthritis Psychiatric Medical History: Reports: Hx Attention Deficit Hyperactivity Disorder Traumatic Medical History: Reports: Hx Fractures - right hand Past Surgical History: Reports: Hx Tonsillectomy - and adenoids - Immunizations Hx Diphtheria, Pertussis, Tetanus Vaccination: Yes Review of Systems - Review of Systems Notes: See history of present illness for pertinent positive review of systems; otherwise all review of systems have been reviewed and are negative Physical Exam - Vital signs Vitals: Temp Pulse Resp BP Pulse Ox 98.8 F 78 16 131/62 H 98 05/04/18 08:56 05/04/18 08:56 05/04/18 08:56 05/04/18 08:56 05/04/18 08:56 - Notes Notes: PHYSICAL EXAMINATION: GENERAL: Well-appearing and in no acute distress. HEAD: Atraumatic, normocephalic. EYES: Pupils equal round and reactive to light, extraocular movements intact, sclera anicteric, conjunctiva are normal. ENT: nares patent, oropharynx clear without exudates. Moist mucous membranes. NECK: Normal range of motion, supple without lymphadenopathy LUNGS: CTAB and equal. No wheezes rales or rhonchi. HEART: Regular rate and rhythm without murmurs; mild to moderate left anterior pectoralis and chest wall TTP ABDOMEN: Soft, no tenderness. No facial grimacing/wincing upon palpation. No guarding, no rebound. BACK: Moderate left upper back muscle TTP overlying the left scapula EXTREMITIES: Normal range of motion, no pitting edema. No cyanosis. NEUROLOGICAL: Cranial nerves grossly intact. Normal sensory/motor exams. PSYCH: Normal mood, normal affect. SKIN: Warm, Dry, normal turgor, no rashes or lesions noted Course - Re-evaluation Re-evalutation: 05/04/18 10:33 EKG my interpretation rate nl rhythm reg No appreciable ST elevation or depression Normal [place] QRS QT No sig change from prior EKG from 12/08/17 EKG and chest x-ray are both unremarkable I suspect he has muscle strain as the etiology of his symptoms Prescription meloxicam Soma and instructed follow-up PCP next day or few He understands agrees plan of care - Vital Signs Vital signs: Temp Pulse Resp BP Pulse Ox 98.8 F 78 16 131/62 H 98 05/04/18 08:56 05/04/18 08:56 05/04/18 08:56 05/04/18 08:56 05/04/18 08:56 Discharge - Discharge Clinical Impression: Muscle strain of anterior chest wall Condition: Good Disposition: HOME, SELF-CARE Additional Instructions: The EKG and chest x-ray did not show any emergency findings. Use the prescribed medication as needed for your symptoms. You were seen in the emergency department at [facility]. If you were given any sedating medications, be sure not to operate heavy machinery (example - driving) and be sure you are not too sedated to walk appropriately. Please followup with your primary physician in the next few days for further management/evaluation. Ple ase return to the emergency department for worsening of symptoms or any symptom that you deem to be concerning or life-threatening. Thank you for allowing us to be part of your care. Prescriptions: Carisoprodol [Soma 350 Mg Tablet] 350 mg PO TID #14 tablet Meloxicam [Mobic] 15 mg PO DAILYP PRN #7 tablet PRN Reason:
[2018-05-04 10:35] VITALS: BP 117/67
[2018-05-04] MEDS ORDERED: NAPROXEN 250 MG TABLET PO ONE (10:36)
--- NOTE | 2018-05-04 13:07 | EKG REPORT ---
SEVERITY:- NORMAL ECG - SINUS RHYTHM : Confirmed by: Israel Jackson MD 04-May-2018 13:06:56
== END 2018-05-04 10:35 | disposition home or self-care (01) ==
LOC: ER 08:39
DX: S29.011A Strain of muscle and tendon of front wall of thorax, initial encounter (principal); X58.XXXA Exposure to other specified factors, initial encounter; M54.89 Other dorsalgia; F17.200 Nicotine dependence, unspecified, uncomplicated
CPT/HCPCS: 71046; 93005; 93010; 99285

== ENCOUNTER 2019-02-22 21:10 | Emergency (ER) | payer SELFPAY ==
[2019-02-22 21:16] VITALS: BP 138/77
--- NOTE | 2019-02-22 22:55 | RADIOLOGY REPORT (SQ) ---
XR FOOT 3 OR MORE VIEWS CLINICAL STATEMENT: tenderness and swelling COMPARISON: None FINDINGS: Bony alignment is anatomic. There is no fracture or dislocation. The soft tissues are unremarkable. IMPRESSION: No fracture.
--- NOTE | 2019-02-23 00:19 | ER Document Report ---
ED General - General Chief Complaint: Foot Pain Stated Complaint: FOOT INJURY Time Seen by Provider: 02/22/19 23:51 TRAVEL OUTSIDE OF THE [place] IN LAST 30 DAYS: No - HPI Notes: Patient is a 28-year-old male who presents emergency department for evaluation of right foot/ankle pain. He states this started on the last 3 days. He denies any injury. No fevers or chills. No nausea or vomiting. He points to the lateral aspect of the foot, just distal to the lateral malleolus. He states that the sharp and stabbing pain. It actually seems to feel better when he is walking on it. He states it feels like his ankle is going to roll, but he has not rolled his ankle. - Related Data Allergies/Adverse Reactions: No Known Allergies Allergy (Verified 05/04/18 08:49) Past Medical History - General Information source: Patient - Social History Smoking Status: Current Every Day Smoker Chew tobacco use (# tins/day): No Frequency of alcohol use: Social Drug Abuse: None Family History: Reviewed & Not Pertinent Patient has suicidal ideation: No Patient has homicidal ideation: No - Past Medical History Cardiac Medical History: Denies: Hx Coronary Artery Disease, Hx Heart Attack, Hx Hypertension Pulmonary Medical History: Reports: Hx Asthma - peds Denies: Hx Bronchitis, Hx COPD, Hx Pneumonia Neurological Medical History: Denies: Hx Cerebrovascular Accident, Hx Seizures Renal/ Medical History: Denies: Hx Peritoneal Dialysis Musculoskeletal Medical History: Denies Hx Arthritis Psychiatric Medical History: Reports: Hx Attention Deficit Hyperactivity Disorder Traumatic Medical History: Reports: Hx Fractures - right hand Past Surgical History: Reports: Hx Tonsillectomy - and adenoids - Immunizations Hx Diphtheria, Pertussis, Tetanus Vaccination: Yes Review of Systems - Review of Systems Constitutional: No symptoms reported EENT: No symptoms reported Cardiovascular: No symptoms reported Respiratory: No symptoms reported Gastrointestinal: No symptoms reported - Prescription, Genitourinary: No symptoms reported Musculoskeletal: See HPI Skin: No symptoms reported Neurological/Psychological: No symptoms reported Physical Exam - Vital signs Vitals: Temp Pulse Resp BP Pulse Ox 98.5 F 91 18 138/77 H 97 02/22/19 21:15 02/22/19 21:15 02/22/19 21:15 02/22/19 21:15 02/22/19 21:15 - Notes Notes: Is a very pleasant 28-year-old male who appears her stated age in no acute distress. Head is normocephalic and atraumatic. Heart regular rate and rhythm, lungs are clear to station bilaterally. Examination of the right lower extremity yields no obvious abnormality. He has full range of motion of the hip, knee, ankles, toes. Dorsalis pedis and posterior tibial pulses are 2+, capillary refill is brisk. No significant soft tissue swelling about the ankle or foot. He is tender to palpation over the anterior talofibular ligament. No tenderness to palpation over bilateral malleoli, both medial and lateral. No fifth metatarsal head tenderness to palpation. Course - Re-evaluation Re-evalutation: 02/23/19 00:16 Is a 28-year-old male who presents to the emergency department for evaluation of atraumatic foot pain. He states that feels as if his ankle is unstable. He does not have any outward signs of infection or gout. X-ray is found to be negative. He states his ankle feels unstable so he is placed in an ankle stirrup. I will send him home with prescription strength anti-inflammatories and close follow-up. He is to return to the ED with worsening. - Vital Signs Vital signs: Temp Pulse Resp BP Pulse Ox 98.5 F 91 18 138/77 H 97 02/22/19 21:15 02/22/19 21:15 02/22/19 21:15 02/22/19 21:15 02/22/19 21:15 Discharge - Discharge Clinical Impression: Pain, joint, foot, right Condition: Stable Disposition: HOME, SELF-CARE Instructions: Exercises for the Foot Muscles ([facility]) Additional Instructions: No clear cause was found today for your foot pain. Use the stirrup for support. Take medication as prescribed, with food. Follow-up with primary care next week. Return to the emergency department with worsening or new concerning symptoms of any sort.
== END 2019-02-23 00:32 | disposition home or self-care (01) ==
LOC: ER 21:10
DX: M25.571 Pain in right ankle and joints of right foot (principal); F17.200 Nicotine dependence, unspecified, uncomplicated
CPT/HCPCS: 99283; L3908

== ENCOUNTER 2019-03-28 17:41 | Emergency (ER) | payer SELFPAY ==
[2019-03-28 17:49] VITALS: BP 150/87
[2019-03-28] MEDS ORDERED: HYDROCODONE/ACETAMINOPHEN 5-325 MG TABLET PO ONE (18:00)
--- NOTE | 2019-03-28 18:02 | ER Document Report ---
HPI - HPI Patient complains to provider of: left ankle pain Time Seen by Provider: 03/28/19 17:56 Onset: Other - 2 days Onset/Duration: Persistent Quality of pain: Achy Pain Level: 3 Context: Patient presents complaining of left lateral ankle pain for the past 2 days. Patient denies any injury. 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 Patient denies any fever or history of gout. Associated Symptoms: denies: Fever, Nausea, Vomiting Exacerbated by: Standing, Movement, Walking Relieved by: Denies Similar symptoms previously: No Recently seen / treated by doctor: No - ROS ROS below otherwise negative: Yes Systems Reviewed and Negative: Yes All other systems reviewed and negative - CONSTITUTIONAL Constitutional: DENIES: Fever, Chills - GASTROINTESTINAL Gastrointestinal: DENIES: Nausea - MUSCULOSKELETAL Musculoskeletal: REPORTS: Extremity pain. 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 Family History: Reviewed & Not Pertinent Patient has suicidal ideation: No Patient has homicidal ideation: No Pulmonary Medical History: Reports: Hx Asthma - peds Renal/ Medical History: Denies: Hx Peritoneal Dialysis Musculoskeletal Medical History: Denies Hx Gout Psychiatric Medical History: Reports: Hx Attention Deficit Hyperactivity Disorder Traumatic Medical History: Reports: Hx Fractures - right hand Past Surgical History: Reports: Hx Tonsillectomy - and adenoids - Immunizations Hx Diphtheria, Pertussis, Tetanus Vaccination: Yes Vertical Provider Document - CONSTITUTIONAL Agree With Documented VS: Yes Exam Limitations: No Limitations General Appearance: WD/WN, No Apparent Distress - INFECTION CONTROL TRAVEL OUTSIDE OF THE [place] IN LAST 30 DAYS: No - HEENT HEENT: Atraumatic, Normocephalic - NECK Neck: Normal Inspection - RESPIRATORY Respiratory: No Respiratory Distress - CARDIOVASCULAR Pulses: Normal: Dorsalis pedis - MUSCULOSKELETAL/EXTREMETIES Musculoskeletal/Extremeties: MAEW, Tender - Left ankle tenderness to area just superior of the lateral malleolar area. No edema, no deformity, normal skin color and temperature., No Edema. negative: Eccymosis Notes: Tenderness increases with eversion and inversion of the foot. - NEURO Level of Consciousness: Awake, Alert, Appropriate Motor/Sensory: No Motor Deficit - DERM Integumentary: Warm, Dry, No Rash Course - Re-evaluation Re-evalutation: 03/28/19 18:34 Patient without any obvious fracture or dislocation. Patient with atraumatic left ankle tenderness. No erythema or calor to the joint. No concern for septic arthritis or gout at this time. Will immobilize joint placing patient on crutches and encourage outpatient follow-up with orthopedics. Good return precautions discussed. - Vital Signs Vital signs: Temp Pulse Resp BP Pulse Ox 98.2 F 101 H 18 150/87 H 97 03/28/19 17:48 03/28/19 17:48 03/28/19 17:48 03/28/19 17:48 03/28/19 17:48 - Diagnostic Test Radiology reviewed: Image reviewed, Reports reviewed Procedures - Immobilization Left Ankle Pre-Proc Neuro Vasc Exam: Normal Immobilizer type: Ankle stirrup Performed by: PCT Post-Proc Neuro Vasc Exam: Normal Alignment checked and good: Yes Discharge - Discharge Clinical Impression: Left ankle pain Qualifiers: Chronicity: acute Qualified Code(s): M25.572 - Pain in left ankle and joints of left foot Condition: Stable Disposition: HOME, SELF-CARE Instructions: Ankle Stirrup Splint ([facility]), Use of Crutches ([facility]), Ice & Elevation ([facility]), Sprained Ankle ([facility]) Additional Instructions: Return immediately for any new or worsening symptoms Followup with your primary care provider, call tomorrow to make a followup appointment Weightbearing as tolerated Follow-up with orthopedics for any persistent pain or problems Prescriptions: Naproxen [Naprosyn 250 Nmg Tablet] 1 tab PO BID #14 tablet Forms: Smoking Cessation Education, Return to Work Referrals: [facility] [Provider Group] - Follow up as needed
--- NOTE | 2019-03-28 18:26 | RADIOLOGY REPORT (SQ) ---
EXAM DESCRIPTION: ANKLE LEFT COMPLETE COMPLETED DATE/TIME: 03/28/2019 6:10 pm REASON FOR STUDY: L lower leg/ankle pain COMPARISON: Left ankle films 07/31/2009 NUMBER OF VIEWS: Three views. TECHNIQUE: AP, lateral, and oblique radiographic images acquired of the left ankle. LIMITATIONS: None. FINDINGS: MINERALIZATION: Normal. BONES: No acute fracture or dislocation. No worrisome bone lesions. JOINTS: Small tibiotalar joint effusion. No disruption of the ankle mortise SOFT TISSUES: Mild lateral soft tissue swelling. No foreign body. OTHER: No other significant finding. IMPRESSION: Ankle joint effusion and lateral soft tissue swelling. No acute displaced fracture TECHNICAL DOCUMENTATION: JOB ID: [id number] [employer]- All Rights Reserved Reading location - IP/workstation name: [email or web address]
== END 2019-03-28 19:13 | disposition home or self-care (01) ==
LOC: ER 17:41
DX: M25.572 Pain in left ankle and joints of left foot (principal); J45.909 Unspecified asthma, uncomplicated; F17.200 Nicotine dependence, unspecified, uncomplicated
CPT/HCPCS: 99283; 73610; L1902

== ENCOUNTER 2019-08-08 09:00 | Emergency (ER) | payer SELFPAY ==
[2019-08-08] MEDS ORDERED: TETRACAINE HCL 0.5% OPH SOLN 4 ML OU ONE (10:10)
--- NOTE | 2019-08-08 11:32 | ER Document Report ---
Entered by NAOMI JHAVERI SCRIBE 08/08/19 1013 Acting as scribe for:MARILYN FOFANA MD ED Eye Complaint - General Chief Complaint: Eye Injury Stated Complaint: EYE PROBLEM Time Seen by Provider: 08/08/19 09:53 Information source: Patient Notes: This 29 year old male patient presents to the emergency department today with complaints of pain in his right eye. Patient states he was working outside yesterday and his friend was mowing. Patient states the lawnmower kicked back and a rock hit his eye. Patient states it feels like there is something stuck in his eye and it is itching. Patient states there has been some tearing, his vision is blurry, and he has been rubbing his eye. TRAVEL OUTSIDE OF THE [place] IN LAST 30 DAYS: No - Related Data Allergies/Adverse Reactions: No Known Allergies Allergy (Verified 08/08/19 09:14) Past Medical History - General Information source: Patient - Social History Smoking Status: Current Every Day Smoker Cigarette use (# per day): Yes Chew tobacco use (# tins/day): No Frequency of alcohol use: Social Drug Abuse: None Family History: Reviewed & Not Pertinent Patient has suicidal ideation: No Patient has homicidal ideation: No Pulmonary Medical History: Reports: Hx Asthma - peds Psychiatric Medical History: Reports: Hx Attention Deficit Hyperactivity Disorder Traumatic Medical History: Reports: Hx Fractures - right hand Past Surgical History: Reports: Hx Tonsillectomy - and adenoids - Immunizations Hx Diphtheria, Pertussis, Tetanus Vaccination: Yes Review of Systems - Review of Systems Constitutional: No symptoms reported EENT: See HPI, Eye pain, Blurred vision, Tearing Cardiovascular: No symptoms reported Respiratory: No symptoms reported Gastrointestinal: No symptoms reported Genitourinary: No symptoms reported Male Genitourinary: No symptoms reported Musculoskeletal: No symptoms reported Skin: No symptoms reported Hematologic/Lymphatic: No symptoms reported Neurological/Psychological: No symptoms reported -: Yes All other systems reviewed and negative Physical Exam - Vital signs Vitals: Temp Pulse Resp BP Pulse Ox 97.9 F 81 16 146/79 H 98 08/08/19 09:08 08/08/19 09:08 08/08/19 09:08 08/08/19 09:08 08/08/19 09:08 - General General appearance: Appears well, Alert - HEENT Head: Normocephalic, Atraumatic Eyes: Tears Conjunctiva: Injected Cornea: Corneal abrasion - At 3 o'clock., Flourescein stain uptake, Other - No foreign body. Extraocular movements intact: Yes Eyelashes: Normal Pupils: PERRL Visual acuity- Right eye: 20/40 Visual acuity- Left eye: 20/30 Visual acuity- Both eyes: 20/25 Corrective lenses worn: No Anterior chamber: Normal Fundascopic: Normal Nerve palsy: No Visual lei normal: Yes - Respiratory Respiratory status: No respiratory distress Chest status: Nontender Breath sounds: Normal Chest palpation: Normal - Cardiovascular Rhythm: Regular Heart sounds: Normal auscultation Murmur: No - Abdominal Inspection: Normal Distension: No distension Bowel sounds: Normal Tenderness: Nontender - Extremities General upper extremity: Normal inspection. No: Edema General lower extremity: Normal inspection. No: Edema - Neurological Neuro grossly intact: Yes Cognition: Normal Orientation: AAOx4 - Psychological Associated symptoms: Normal affect, Normal mood - Skin Skin Temperature: Warm Skin Moisture: Dry Skin Color: Normal Course - Re-evaluation Re-evalutation: 08/08/19 11:27 After examination of the eye with fluorescein stain uptake and irrigation tetracaine drops patient states his eye feels better his vision is clear at this time as well patient is able to open and close his eyes without having pain at this time. - Vital Signs Vital signs: Temp Pulse Resp BP Pulse Ox 97.9 F 81 16 146/79 H 98 08/08/19 09:08 08/08/19 09:08 08/08/19 09:08 08/08/19 09:08 08/08/19 09:08 Discharge - Discharge Clinical Impression: Corneal abrasion, right Disposition: HOME, SELF-CARE Prescriptions: Ibuprofen [Motrin 800 mg Tablet] 800 mg PO Q8H PRN #21 tab PRN Reason: pain Tobramycin/Dexamethasone [Tobradex St Eye Drops] 5 ml OD QID 7 Days #1 bottle Referrals: TASNEEM SOLORZANO MD [ACTIVE STAFF] - Follow up as needed I personally performed the services described in the documentation, reviewed and edited the documentation which was dictated to the scribe in my presence, and it accurately records my words and actions.
[2019-08-08 11:36] VITALS: BP 136/77
== END 2019-08-08 11:40 | disposition home or self-care (01) ==
LOC: ER 09:00
DX: S05.01XA Injury of conjunctiva and corneal abrasion without foreign body, right eye, initial encounter (principal); W20.8XXA Other cause of strike by thrown, projected or falling object, initial encounter; F17.210 Nicotine dependence, cigarettes, uncomplicated
CPT/HCPCS: 99283; J3490